=== PATIENT | female | born 1935 | race Caucasian/White ===

== ENCOUNTER → 2017-02-17 | Outpatient (CLI) | payer MEDICARE, BC ==
[~2017-02-17] MED LIST: ANTIVERT25 MG PO; ASPIR 8181 MG PO; BABY ASA; BENAZEPRIL; CALCIUM 500 +1 EAC2 PO; CALCIUM500 MG; CARDIZEM CD120 M2 PO; CARDIZEM CD120 MG; CARDIZEM120 MG PO; ESCITALOPRAM10 MG; FERROUS SULFATE; HYCODAN/HYDROMET5 ML PO; HYDROCHLOROTHIAZIDE; KLOR-CON 88 ME1 PO; KLOR-CON 88 MEQ PO; LEVAQUIN750 MG PO; LEVOFLOXACIN500 MG PO; LEXAPRO10 MG PO; LOTENSIN HCT 51 TAB PO; OMEPRAZOLE20 M2 PO; PLAVIX75 M1 PO; POTASSIUM; PREDNISONE10 MG PO; PRILOSEC20 MG; TESSALON PERLE100 MG PO; ZOCOR40 MG PO; ZOFRAN4 MG PO
== END | disposition home or self-care (01) ==
LOC: RAD 14:38
DX: J44.9 Chronic obstructive pulmonary disease, unspecified (principal); R05 Cough; R06.02 Shortness of breath; Z87.891 Personal history of nicotine dependence

== ENCOUNTER 2017-12-15 14:29 | Emergency (ER) | payer MEDICARE, BC ==
[~2017-12-15] VITALS: Ht 175.2 cm; Wt 62.6 kg
--- NOTE | ~2017-12-15 | EKG ---
[place], [place] ELECTROCARDIOGRAM REPORT NAME: JELLY BOWEN UNIT #: [id number] ROOM: DOCTOR: GERMANIA JACOBS MD BIRTHDATE: [birth year] DOS: 12/15/2017 TIME: 1501 hours. Normal sinus rhythm at 57 beats per minute. Low voltage in limb leads. Nonspecific T-wave changes in chest leads. An abnormal ECG. No previous tracing is available for comparison. GERMANIA JACOBS MD CM:EKGRPT:ELECTROCARDIOGRAM REPORT [id number] GERMANIA JACOBS MD
[2017-12-15 15:11] LABS: HEMATOCRIT 38.1 % (37.0-47.0); HEMOGLOBIN 12.4 g/dl (12.0-16.0); MEAN CELL VOLUME 87.4 fl (81.0-99.0); MEAN CORPUSCULAR HGB 28.4 pg (27.0-31.0); MEAN CORPUSCULAR HGB CONC 32.5 g/dl (33.0-37.0); MEAN PLATELET VOLUME 10.7 fl (9.6-12.3); PLATELET COUNT AUTOMATED 227 10*3/uL (130-400); RED BLOOD COUNT 4.36 10*6/uL (4.10-5.10); RED CELL DISTRI WIDTH 13.5 % (0-14.5); WHITE BLOOD COUNT 4.8 10*3/uL (4.8-10.8)
[2017-12-15 15:30] LABS: PLATELET SUFFICIENCY NORMAL (NORMAL); TOTAL CELLS COUNTED 100 #CELLS
[2017-12-15 15:31] LABS: BURR CELLS FEW; OVALOCYTES FEW
[2017-12-15 15:38] LABS: ALBUMIN 3.4 gm/dl (3.1-4.5); CREATININE 1.1 mg/dL (0.55-1.02); FREE T4 1.47 ng/dl (0.76-1.46); POTASSIUM 3.6 mmol/L (3.5-5.1)
[2017-12-15 15:39] LABS: TROPONIN I 0.031 ng/ml (<0.045)
[2017-12-15 15:45] LABS: THYROID STIM HORMONE (HS) 2.79 uIU/ml (0.358-4.75)
[2017-12-15] MEDS ORDERED: MELOXICAM7.5 MG PO (16:09)
[2017-12-15] MEDS ORDERED: CLARITIN10 MG PO (16:10)
[2017-12-15] MEDS ORDERED: VITAMIN D-32000 UNI1 PO (16:10)
[2017-12-15] MEDS ORDERED: WOMEN'S DAILY1 EAC1 PO (16:11)
[2017-12-15 16:15] LABS: BILIRUBIN NEGATIVE (NEGATIVE); BLOOD TRACE-INTACT (NEGATIVE); CLARITY SL CLOUDY (CLEAR); COLOR YELLOW (YELLOW); GLUCOSE NEGATIVE (NEGATIVE); KETONE NEGATIVE (NEGATIVE); NITRITE NEGATIVE (NEGATIVE); UROBILINOGEN 0.2 E.U./dl (0.2-1.0)
[2017-12-15 16:32] LABS: LEUKO ESTERASE 3+ (NEGATIVE)
[2017-12-15 16:33] LABS: BACTERIA 2+; EPITHELIAL CELLS TNTC; WBC TNTC wbc/hpf (0-5)
[2017-12-15] MEDS ORDERED: TAMIFLU 75MG CA75 MG PO (17:21)
[2017-12-15] MEDS ORDERED: LEVAQUIN250 M1 PO (17:21)
== END 2017-12-15 17:48 | disposition home or self-care (01) ==
LOC: ED 14:29
PROVIDERS: Family Medicine
DX: J40 Bronchitis, not specified as acute or chronic (principal); J10.1 Influenza due to other identified influenza virus with other respiratory manifestations; N39.0 Urinary tract infection, site not specified; F41.9 Anxiety disorder, unspecified; J44.1 Chronic obstructive pulmonary disease with (acute) exacerbation; I10 Essential (primary) hypertension; E78.5 Hyperlipidemia, unspecified; Z90.49 Acquired absence of other specified parts of digestive tract; Z90.710 Acquired absence of both cervix and uterus; Z79.82 Long term (current) use of aspirin; Z88.0 Allergy status to penicillin; Z88.2 Allergy status to sulfonamides; Z88.8 Allergy status to other drugs, medicaments and biological substances

== ENCOUNTER 2017-12-17 12:00 | Inpatient (IN) | payer MEDICARE, BC ==
[~2017-12-17] VITALS: Ht 175.2 cm; Wt 56.0 kg
[~2017-12-17 12:00] MED LIST changes: +CLARITIN10 MG PO; +LEVAQUIN250 M1 PO; +MELOXICAM7.5 MG PO; +TAMIFLU 75MG CA75 MG PO; +VITAMIN D-32000 UNI1 PO; +WOMEN'S DAILY1 EAC1 PO
[2017-12-17 12:05] VITALS: BP 139/63
[2017-12-17 13:00] LABS: HEMATOCRIT 36.2 % (37.0-47.0); HEMOGLOBIN 11.9 g/dl (12.0-16.0); MEAN CELL VOLUME 86.8 fl (81.0-99.0); MEAN CORPUSCULAR HGB 28.5 pg (27.0-31.0); MEAN CORPUSCULAR HGB CONC 32.9 g/dl (33.0-37.0); MEAN PLATELET VOLUME 10.8 fl (9.6-12.3); PLATELET COUNT AUTOMATED 240 10*3/uL (130-400); RED BLOOD COUNT 4.17 10*6/uL (4.10-5.10); RED CELL DISTRI WIDTH 13.5 % (0-14.5); WHITE BLOOD COUNT 5.9 10*3/uL (4.8-10.8)
[2017-12-17 13:16] LABS: ALBUMIN 3.4 gm/dl (3.1-4.5); ALKALINE PHOSPHATASE 98 U/L (45-117); BUN 17 mg/dl (7-24); CHLORIDE 102 mmol/L (98-107); CREATININE 1.06 mg/dL (0.55-1.02); POTASSIUM 3.9 mmol/L (3.5-5.1); SGOT/AST 28 IU/L (3-35); SGPT/ALT 20 U/L (12-78); SODIUM 137 mmol/L (136-145); TOTAL PROTEIN 7.3 gm/dL (6.4-8.2); TROPONIN I 0.026 ng/ml (<0.045)
[2017-12-17 13:27] LABS: PLATELET SUFFICIENCY NORMAL (NORMAL); TOTAL CELLS COUNTED 100 #CELLS
[2017-12-17 13:45] VITALS: BP 112/53
[2017-12-17 15:24] VITALS: BP 107/52
[2017-12-17 15:58] LABS: BILIRUBIN NEGATIVE (NEGATIVE); BLOOD NEGATIVE (NEGATIVE); CLARITY CLEAR (CLEAR); COLOR YELLOW (YELLOW); GLUCOSE NEGATIVE (NEGATIVE); KETONE TRACE (NEGATIVE); LEUKO ESTERASE NEGATIVE (NEGATIVE); NITRITE NEGATIVE (NEGATIVE); PH 5.5 (5.0-9.0); SPECIFIC GRAVITY 1.025 (1.005-1.030); UROBILINOGEN 0.2 E.U./dl (0.2-1.0)
[2017-12-17] MEDS ORDERED: PROAIR HFA8.5 GM INH (16:10)
[2017-12-17] MEDS ORDERED: Synthroid,Levo50 MCG PO (16:12)
[2017-12-17 16:13] LABS: MUCOUS 1+
[2017-12-17 16:14] LABS: BACTERIA TRACE
[2017-12-17 16:15] VITALS: BP 111/47
[2017-12-17 20:00] VITALS: BP 113/47
[2017-12-18] VITALS: BP 104/48
[2017-12-18 06:54] LABS: BASO % 0.3 % (0.0-1.0); EOS % 0.8 % (1.0-4.0); HEMATOCRIT 32.1 % (37.0-47.0); HEMOGLOBIN 10.4 g/dl (12.0-16.0); LYMPH # 1.4 10*3/uL (1.3-4.4); LYMPH % 39.2 % (27.0-41.0); MEAN CELL VOLUME 89.4 fl (81.0-99.0); MEAN CORPUSCULAR HGB CONC 32.4 g/dl (33.0-37.0); MEAN PLATELET VOLUME 10.6 fl (9.6-12.3); MONO # 0.3 10*3/uL (0.1-1.0); MONO % 7.4 % (3.0-9.0); NEUT # 1.9 10*3/uL (2.3-7.9); PLATELET COUNT AUTOMATED 183 10*3/uL (130-400); RED BLOOD COUNT 3.59 10*6/uL (4.10-5.10); RED CELL DISTRI WIDTH 13.5 % (0-14.5); WHITE BLOOD COUNT 3.7 10*3/uL (4.8-10.8)
[2017-12-18 07:12] LABS: CREATININE 1.07 mg/dL (0.55-1.02); POTASSIUM 3.9 mmol/L (3.5-5.1)
[2017-12-18 08:00] VITALS: BP 106/64
[2017-12-18 08:50] LABS: VITAMIN D, 25-HYDROXY 44.4 ng/mL (30-100)
[2017-12-18 12:00] VITALS: BP 133/61
[2017-12-18 16:00] VITALS: BP 115/59
[2017-12-18 20:00] VITALS: BP 126/63
[2017-12-19] VITALS: BP 116/67
[2017-12-19 06:48] LABS: BASO % 0.3 % (0.0-1.0); EOS # 0.1 10*3/uL (0.0-0.4); EOS % 1.5 % (1.0-4.0); HEMATOCRIT 30.6 % (37.0-47.0); HEMOGLOBIN 9.7 g/dl (12.0-16.0); LYMPH # 1.4 10*3/uL (1.3-4.4); LYMPH % 39.2 % (27.0-41.0); MEAN CELL VOLUME 89.2 fl (81.0-99.0); MEAN CORPUSCULAR HGB 28.3 pg (27.0-31.0); MEAN CORPUSCULAR HGB CONC 31.7 g/dl (33.0-37.0); MEAN PLATELET VOLUME 11.1 fl (9.6-12.3); MONO # 0.3 10*3/uL (0.1-1.0); MONO % 8.4 % (3.0-9.0); NEUT # 1.7 10*3/uL (2.3-7.9); PLATELET COUNT AUTOMATED 169 10*3/uL (130-400); RED BLOOD COUNT 3.43 10*6/uL (4.10-5.10); RED CELL DISTRI WIDTH 13.7 % (0-14.5); WHITE BLOOD COUNT 3.4 10*3/uL (4.8-10.8)
[2017-12-19 07:21] LABS: ALBUMIN 2.8 gm/dl (3.1-4.5); ALKALINE PHOSPHATASE 76 U/L (45-117); BUN 14 mg/dl (7-24); CHLORIDE 106 mmol/L (98-107); CREATININE 0.91 mg/dL (0.55-1.02); POTASSIUM 3.4 mmol/L (3.5-5.1); SGOT/AST 18 IU/L (3-35); SGPT/ALT 16 U/L (12-78); SODIUM 140 mmol/L (136-145); TOTAL PROTEIN 6.1 gm/dL (6.4-8.2)
[2017-12-19 08:10] VITALS: BP 135/52
[2017-12-19 12:35] VITALS: BP 117/60
[2017-12-19 16:00] VITALS: BP 105/40
[2017-12-19 20:00] VITALS: BP 102/48
[2017-12-20] VITALS: BP 116/84
[2017-12-20 06:51] LABS: BASO % 0.2 % (0.0-1.0); EOS # 0.1 10*3/uL (0.0-0.4); EOS % 2.1 % (1.0-4.0); HEMATOCRIT 29.8 % (37.0-47.0); HEMOGLOBIN 9.7 g/dl (12.0-16.0); LYMPH # 1.4 10*3/uL (1.3-4.4); LYMPH % 33.6 % (27.0-41.0); MEAN CELL VOLUME 89.5 fl (81.0-99.0); MEAN CORPUSCULAR HGB 29.1 pg (27.0-31.0); MEAN CORPUSCULAR HGB CONC 32.6 g/dl (33.0-37.0); MEAN PLATELET VOLUME 10.8 fl (9.6-12.3); MONO # 0.4 10*3/uL (0.1-1.0); MONO % 8.6 % (3.0-9.0); NEUT # 2.4 10*3/uL (2.3-7.9); NEUT % 55.3 % (47.0-73.0); PLATELET COUNT AUTOMATED 189 10*3/uL (130-400); RED BLOOD COUNT 3.33 10*6/uL (4.10-5.10); RED CELL DISTRI WIDTH 13.7 % (0-14.5); WHITE BLOOD COUNT 4.3 10*3/uL (4.8-10.8)
[2017-12-20 07:30] LABS: CHLORIDE 106 mmol/L (98-107); POTASSIUM 3.5 mmol/L (3.5-5.1); SODIUM 140 mmol/L (136-145)
[2017-12-20 07:40] LABS: ALBUMIN 2.8 gm/dl (3.1-4.5); ALKALINE PHOSPHATASE 79 U/L (45-117); BUN 14 mg/dl (7-24); SGOT/AST 18 IU/L (3-35); SGPT/ALT 16 U/L (12-78); TOTAL PROTEIN 6.2 gm/dL (6.4-8.2)
[2017-12-20 08:00] VITALS: BP 136/60
[2017-12-20 12:00] VITALS: BP 124/60
[2017-12-20 16:00] VITALS: BP 135/54
[2017-12-20 20:00] VITALS: BP 103/65
[2017-12-21] VITALS: BP 115/60
[2017-12-21 07:13] LABS: BASO % 0.4 % (0.0-1.0); EOS # 0.2 10*3/uL (0.0-0.4); EOS % 3.8 % (1.0-4.0); HEMATOCRIT 32.2 % (37.0-47.0); HEMOGLOBIN 10.1 g/dl (12.0-16.0); LYMPH # 1.4 10*3/uL (1.3-4.4); MEAN CELL VOLUME 89.9 fl (81.0-99.0); MEAN CORPUSCULAR HGB 28.2 pg (27.0-31.0); MEAN CORPUSCULAR HGB CONC 31.4 g/dl (33.0-37.0); MEAN PLATELET VOLUME 11.1 fl (9.6-12.3); MONO # 0.4 10*3/uL (0.1-1.0); MONO % 8.6 % (3.0-9.0); NEUT # 2.8 10*3/uL (2.3-7.9); NEUT % 57.8 % (47.0-73.0); PLATELET COUNT AUTOMATED 237 10*3/uL (130-400); RED BLOOD COUNT 3.58 10*6/uL (4.10-5.10); RED CELL DISTRI WIDTH 14.1 % (0-14.5); WHITE BLOOD COUNT 4.8 10*3/uL (4.8-10.8)
[2017-12-21 07:23] LABS: ALBUMIN 2.7 gm/dl (3.1-4.5); ALKALINE PHOSPHATASE 78 U/L (45-117); BUN 13 mg/dl (7-24); CHLORIDE 108 mmol/L (98-107); CREATININE 0.99 mg/dL (0.55-1.02); POTASSIUM 4.2 mmol/L (3.5-5.1); SGOT/AST 15 IU/L (3-35); SGPT/ALT 15 U/L (12-78); SODIUM 143 mmol/L (136-145); TOTAL PROTEIN 6.1 gm/dL (6.4-8.2)
[2017-12-21 08:00] VITALS: BP 144/56
[2017-12-21 12:00] VITALS: BP 122/42
[2017-12-21] MEDS ORDERED: PHENERGAN25 M3 PO (14:08)
== END 2017-12-21 15:39 | disposition home health service (06) | DRG 193 ==
LOC: ED 12:00 → EDHOLD 14:48 → 5E 14:48
PROVIDERS: Emergency Medicine; Family Medicine Adult Medicine; Internal Medicine Hospice and Palliative Medicine; Student in an Organized Health Care Education/Training Program
DX: J10.1 Influenza due to other identified influenza virus with other respiratory manifestations (principal); N17.0 Acute kidney failure with tubular necrosis; N30.00 Acute cystitis without hematuria; E86.0 Dehydration; D64.9 Anemia, unspecified; M15.9 Polyosteoarthritis, unspecified; R26.2 Difficulty in walking, not elsewhere classified; Z66 Do not resuscitate; Z51.5 Encounter for palliative care; E03.9 Hypothyroidism, unspecified; K21.9 Gastro-esophageal reflux disease without esophagitis; F32.9 Major depressive disorder, single episode, unspecified; J30.2 Other seasonal allergic rhinitis; E55.9 Vitamin D deficiency, unspecified; J44.9 Chronic obstructive pulmonary disease, unspecified; I73.9 Peripheral vascular disease, unspecified; Z90.49 Acquired absence of other specified parts of digestive tract; Z90.710 Acquired absence of both cervix and uterus; Z87.891 Personal history of nicotine dependence; Z82.49 Family history of ischemic heart disease and other diseases of the circulatory system; Z88.1 Allergy status to other antibiotic agents; Z88.0 Allergy status to penicillin; Z88.2 Allergy status to sulfonamides; Z88.8 Allergy status to other drugs, medicaments and biological substances; Z79.82 Long term (current) use of aspirin; Z79.899 Other long term (current) drug therapy

== ENCOUNTER 2018-09-15 17:49 | Inpatient (IN) | payer MEDICARE, BC ==
[~2018-09-15] VITALS: Ht 175.3 cm; Wt 56.5 kg
--- NOTE | ~2018-09-15 | EKG ---
[place], [place] ELECTROCARDIOGRAM REPORT NAME: JELLY BOWEN UNIT #: [id number] ROOM: 404 DOCTOR: RAGHAVENDRA DRAFT REPORT BIRTHDATE: [birth year] [facility] Test Date: 2018-09-15 Test Time: 18:14:19 Pat Name: JELLY BOWEN Department: ER Room: 404 Gender: F Pizzamaker: Jolly Domínguez : 1935 Requested By: KAREN CARABALLO Order Number: [id number] Reading MD: Micky Johnson MD Measurements Intervals [place] Rate: 78 P: 68 MI: 162 QRS: -11 QRSD: 94 T: 56 QT: 390 QTc: 445 Interpretive Statements Sinus rhythm Borderline low voltage, extremity leads Electronically Signed On 09-16-2018 3:22:56 PST by Micky Johnson MD CM:EKGRPT:ELECTROCARDIOGRAM REPORT [id number] KAREN CARABALLO DO EPIPHANY DRAFT REPORT KAREN CARABALLO DO
[2018-09-15 17:49] VITALS: BP 158/127
[~2018-09-15 17:49] MED LIST changes: +PHENERGAN25 M3 PO; +PROAIR HFA8.5 GM INH; +Synthroid,Levo50 MCG PO
[2018-09-15] MEDS ORDERED: OMEPRAZOLE MAGN20 MG PO (18:12)
[2018-09-15] MEDS ORDERED: BENAZEPRIL-HCT1 EACH PO (18:14)
[2018-09-15] MEDS ORDERED: ASPIRIN81 M1 PO (18:15)
[2018-09-15 19:31] LABS: BASO % 0.2 % (0.0-1.0); EOS # 0.1 10*3/uL (0.0-0.4); EOS % 1.3 % (1.0-4.0); HEMATOCRIT 32.1 % (37.0-47.0); HEMOGLOBIN 10.5 g/dl (12.0-16.0); LYMPH % 8.9 % (27.0-41.0); MEAN CELL VOLUME 89.2 fl (81.0-99.0); MEAN CORPUSCULAR HGB 29.2 pg (27.0-31.0); MEAN CORPUSCULAR HGB CONC 32.7 g/dl (33.0-37.0); MEAN PLATELET VOLUME 10.4 fl (9.6-12.3); MONO # 0.6 10*3/uL (0.1-1.0); MONO % 5.4 % (3.0-9.0); NEUT # 9.1 10*3/uL (2.3-7.9); NEUT % 83.7 % (47.0-73.0); PLATELET COUNT AUTOMATED 281 10*3/uL (130-400); RED CELL DISTRI WIDTH 14.1 % (0-14.5); WHITE BLOOD COUNT 10.9 10*3/uL (4.8-10.8)
[2018-09-15 19:37] LABS: ACT PARTIAL THROMBO TIME 25.9 SECONDS (20.8-31.5)
[2018-09-15 19:45] LABS: ALBUMIN 3.1 gm/dl (3.1-4.5); ALKALINE PHOSPHATASE 107 U/L (45-117); BUN 23 mg/dl (7-24); CHLORIDE 105 mmol/L (98-107); CREATININE 0.89 mg/dL (0.55-1.02); POTASSIUM 3.9 mmol/L (3.5-5.1); SGOT/AST 16 IU/L (3-35); SGPT/ALT 14 U/L (12-78); SODIUM 138 mmol/L (136-145); URIC ACID 3.7 mg/dL (2.6-6.0)
[2018-09-15 19:46] LABS: TROPONIN I < 0.015 ng/ml (<0.045)
[2018-09-15 20:00] VITALS: BP 132/62
[2018-09-15 20:18] LABS: BILIRUBIN NEGATIVE (NEGATIVE); BLOOD NEGATIVE (NEGATIVE); CLARITY CLEAR (CLEAR); COLOR YELLOW (YELLOW); GLUCOSE NEGATIVE (NEGATIVE); KETONE NEGATIVE (NEGATIVE); LEUKO ESTERASE 2+ (NEGATIVE); NITRITE NEGATIVE (NEGATIVE); PH 5.5 (5.0-9.0); SPECIFIC GRAVITY 1.025 (1.005-1.030); UROBILINOGEN 0.2 E.U./dl (0.2-1.0)
[2018-09-15 20:56] LABS: BACTERIA 2+; MUCOUS TRACE; WBC 31-40 wbc/hpf (0-5)
[2018-09-15 22:00] VITALS: BP 132/62
[2018-09-16] VITALS: BP 128/44
[2018-09-16 06:37] LABS: BASO % 0.1 % (0.0-1.0); EOS # 0.1 10*3/uL (0.0-0.4); EOS % 0.9 % (1.0-4.0); HEMATOCRIT 30.1 % (37.0-47.0); HEMOGLOBIN 9.6 g/dl (12.0-16.0); LYMPH # 1.5 10*3/uL (1.3-4.4); LYMPH % 15.5 % (27.0-41.0); MEAN CELL VOLUME 89.9 fl (81.0-99.0); MEAN CORPUSCULAR HGB 28.7 pg (27.0-31.0); MEAN CORPUSCULAR HGB CONC 31.9 g/dl (33.0-37.0); MEAN PLATELET VOLUME 10.4 fl (9.6-12.3); MONO # 0.6 10*3/uL (0.1-1.0); MONO % 5.9 % (3.0-9.0); NEUT # 7.4 10*3/uL (2.3-7.9); NEUT % 77.3 % (47.0-73.0); PLATELET COUNT AUTOMATED 280 10*3/uL (130-400); RED BLOOD COUNT 3.35 10*6/uL (4.10-5.10); RED CELL DISTRI WIDTH 14.2 % (0-14.5); WHITE BLOOD COUNT 9.6 10*3/uL (4.8-10.8)
[2018-09-16 07:10] LABS: ALBUMIN 2.7 gm/dl (3.1-4.5); BUN 20 mg/dl (7-24); CHLORIDE 105 mmol/L (98-107); PHOSPHOROUS 2.4 mg/dL (2.5-4.9); POTASSIUM 3.9 mmol/L (3.5-5.1); SGOT/AST 14 IU/L (3-35); SGPT/ALT 13 U/L (12-78); SODIUM 137 mmol/L (136-145); TOTAL PROTEIN 6.1 gm/dL (6.4-8.2)
[2018-09-16 07:12] LABS: ALKALINE PHOSPHATASE 95 U/L (45-117); CHOLESTEROL 116 mg/dL (<200); HDL CHOLESTEROL 42 mg/dl (40-60); LDL CHOLESTEROL 60 mg/dL (9-159); TRIGLYCERIDES 70 mg/dl (<150); VLDL CHOLESTEROL 14 mg/dL (6-40)
[2018-09-16 08:02] VITALS: BP 116/60
[2018-09-16 12:21] VITALS: BP 112/47
[2018-09-16 16:00] VITALS: BP 115/50
[2018-09-16 20:00] VITALS: BP 104/56
[2018-09-17] VITALS: BP 148/62
[2018-09-17 06:44] LABS: BASO % 0.1 % (0.0-1.0); EOS % 0.4 % (1.0-4.0); HEMOGLOBIN 9.3 g/dl (12.0-16.0); LYMPH # 1.4 10*3/uL (1.3-4.4); LYMPH % 15.7 % (27.0-41.0); MEAN CELL VOLUME 90.9 fl (81.0-99.0); MEAN CORPUSCULAR HGB 28.2 pg (27.0-31.0); MEAN PLATELET VOLUME 10.8 fl (9.6-12.3); MONO # 0.5 10*3/uL (0.1-1.0); NEUT # 7.1 10*3/uL (2.3-7.9); NEUT % 78.4 % (47.0-73.0); PLATELET COUNT AUTOMATED 272 10*3/uL (130-400); RED CELL DISTRI WIDTH 13.9 % (0-14.5); WHITE BLOOD COUNT 9.1 10*3/uL (4.8-10.8)
[2018-09-17 07:03] LABS: ALBUMIN 2.8 gm/dl (3.1-4.5); ALKALINE PHOSPHATASE 98 U/L (45-117); BUN 23 mg/dl (7-24); CHLORIDE 105 mmol/L (98-107); CREATININE 0.87 mg/dL (0.55-1.02); POTASSIUM 3.6 mmol/L (3.5-5.1); SGOT/AST 14 IU/L (3-35); SGPT/ALT 13 U/L (12-78); SODIUM 138 mmol/L (136-145); TOTAL PROTEIN 6.4 gm/dL (6.4-8.2)
[2018-09-17 08:00] VITALS: BP 103/83
[2018-09-17] MEDS ORDERED: PEPCID20 MG PO (09:17)
[2018-09-17] MEDS ORDERED: PREDNISONE20 M1 PO (09:17)
[2018-09-17] MEDS ORDERED: TYLENOL325 M2 PO (09:17)
== END 2018-09-17 13:15 | disposition home or self-care (01) | DRG 546 ==
LOC: ED 17:49 → EDHOLD 20:50 → 4E 20:50
PROVIDERS: Family Medicine; Internal Medicine
DX: M35.3 Polymyalgia rheumatica (principal); E44.1 Mild protein-calorie malnutrition; R65.10 Systemic inflammatory response syndrome (SIRS) of non-infectious origin without acute organ dysfunction; N30.01 Acute cystitis with hematuria; Z68.1 Body mass index [BMI] 19.9 or less, adult; I16.0 Hypertensive urgency; I10 Essential (primary) hypertension; Z73.89 Other problems related to life management difficulty; D64.9 Anemia, unspecified; J30.2 Other seasonal allergic rhinitis; F32.9 Major depressive disorder, single episode, unspecified; E55.9 Vitamin D deficiency, unspecified; M19.012 Primary osteoarthritis, left shoulder; E78.5 Hyperlipidemia, unspecified; I73.9 Peripheral vascular disease, unspecified; J44.9 Chronic obstructive pulmonary disease, unspecified; D72.810 Lymphocytopenia; K21.9 Gastro-esophageal reflux disease without esophagitis; E03.9 Hypothyroidism, unspecified; Z90.49 Acquired absence of other specified parts of digestive tract; Z90.710 Acquired absence of both cervix and uterus; Z98.49 Cataract extraction status, unspecified eye; Z87.891 Personal history of nicotine dependence; Z82.49 Family history of ischemic heart disease and other diseases of the circulatory system; Z88.0 Allergy status to penicillin; Z88.1 Allergy status to other antibiotic agents; Z88.2 Allergy status to sulfonamides; Z88.8 Allergy status to other drugs, medicaments and biological substances; Z79.82 Long term (current) use of aspirin; Z79.899 Other long term (current) drug therapy

== ENCOUNTER 2019-02-16 20:32 | Emergency (ER) | payer MEDICARE, BC ==
[~2019-02-16] VITALS: Ht 172.7 cm; Wt 68.0 kg
[~2019-02-16 20:32] MED LIST changes: +ASPIRIN81 M1 PO; +BENAZEPRIL-HCT1 EACH PO; +OMEPRAZOLE MAGN20 MG PO; +PEPCID20 MG PO; +PREDNISONE20 M1 PO; +TYLENOL325 M2 PO
[2019-02-16 22:24] LABS: BILIRUBIN NEGATIVE (NEGATIVE); BLOOD NEGATIVE (NEGATIVE); CLARITY SL CLOUDY (CLEAR); COLOR YELLOW (YELLOW); GLUCOSE NEGATIVE (NEGATIVE); KETONE TRACE (NEGATIVE); LEUKO ESTERASE 1+ (NEGATIVE); NITRITE NEGATIVE (NEGATIVE); PH 5.5 (5.0-9.0); SPECIFIC GRAVITY >= 1.030 (1.005-1.030); UROBILINOGEN 0.2 E.U./dl (0.2-1.0)
[2019-02-16 22:31] LABS: BACTERIA 2+; EPITHELIAL CELLS TNTC; MUCOUS 1+; RBC 0-2 rbc/hpf (0-2)
[2019-02-16] MEDS ORDERED: MACROBID100 M1 PO (23:17)
[2019-02-16] MEDS ORDERED: VOLTAREN100 GM T (23:17)
== END 2019-02-16 23:56 | disposition home or self-care (01) ==
LOC: ED 20:32
PROVIDERS: Emergency Medicine Emergency Medical Services
DX: N39.0 Urinary tract infection, site not specified (principal); M51.36 Other intervertebral disc degeneration, lumbar region; J44.9 Chronic obstructive pulmonary disease, unspecified; I10 Essential (primary) hypertension; K21.9 Gastro-esophageal reflux disease without esophagitis; E78.5 Hyperlipidemia, unspecified; E03.9 Hypothyroidism, unspecified; I73.9 Peripheral vascular disease, unspecified; Z88.0 Allergy status to penicillin; Z88.2 Allergy status to sulfonamides; Z88.1 Allergy status to other antibiotic agents; Z88.8 Allergy status to other drugs, medicaments and biological substances; Z79.899 Other long term (current) drug therapy; Z79.82 Long term (current) use of aspirin; Z90.710 Acquired absence of both cervix and uterus; Z90.49 Acquired absence of other specified parts of digestive tract; Z87.891 Personal history of nicotine dependence

== ENCOUNTER 2019-06-04 11:20 | Emergency (ER) | payer MEDICARE, BC ==
[~2019-06-04] VITALS: Ht 175.2 cm; Wt 57.6 kg
[~2019-06-04 11:20] MED LIST changes: +MACROBID100 M1 PO; +VOLTAREN100 GM T
[2019-06-04] MEDS ORDERED: TEMOVATE30 GM T (11:54)
== END 2019-06-04 11:57 | disposition home or self-care (01) ==
LOC: ED 11:20
DX: R21 Rash and other nonspecific skin eruption (principal); J44.9 Chronic obstructive pulmonary disease, unspecified; I10 Essential (primary) hypertension; K21.9 Gastro-esophageal reflux disease without esophagitis; E78.5 Hyperlipidemia, unspecified; E03.9 Hypothyroidism, unspecified; I73.9 Peripheral vascular disease, unspecified; M06.9 Rheumatoid arthritis, unspecified; Z88.0 Allergy status to penicillin; Z88.2 Allergy status to sulfonamides; Z88.1 Allergy status to other antibiotic agents; Z88.8 Allergy status to other drugs, medicaments and biological substances; Z79.2 Long term (current) use of antibiotics; Z79.82 Long term (current) use of aspirin; Z79.899 Other long term (current) drug therapy; Z87.891 Personal history of nicotine dependence; Z90.49 Acquired absence of other specified parts of digestive tract; Z90.710 Acquired absence of both cervix and uterus

== ENCOUNTER 2019-12-04 14:39 | Inpatient (IN) | payer MEDICARE, BC ==
[~2019-12-04] VITALS: Ht 172.7 cm; Wt 58.1 kg
[~2019-12-04 14:39] MED LIST changes: +TEMOVATE30 GM T
[2019-12-04 14:53] VITALS: BP 122/48
[2019-12-04 16:01] LABS: BASO % 0.3 % (0.0-1.0); EOS % 0.3 % (1.0-4.0); HEMATOCRIT 31.1 % (37.0-47.0); HEMOGLOBIN 9.5 g/dl (12.0-16.0); LYMPH # 0.8 10*3/uL (1.3-4.4); LYMPH % 8.1 % (27.0-41.0); MEAN CELL VOLUME 94.5 fl (81.0-99.0); MEAN CORPUSCULAR HGB 28.9 pg (27.0-31.0); MEAN CORPUSCULAR HGB CONC 30.5 g/dl (33.0-37.0); MEAN PLATELET VOLUME 10.9 fl (9.6-12.3); MONO # 0.7 10*3/uL (0.1-1.0); MONO % 6.9 % (3.0-9.0); NEUT # 8.1 10*3/uL (2.3-7.9); PLATELET COUNT AUTOMATED 294 10*3/uL (130-400); RED BLOOD COUNT 3.29 10*6/uL (4.10-5.10); RED CELL DISTRI WIDTH 15.9 % (0-14.5); WHITE BLOOD COUNT 9.7 10*3/uL (4.8-10.8)
[2019-12-04 16:10] LABS: ACT PARTIAL THROMBO TIME 23.4 SECONDS (20.0-32.1)
[2019-12-04 16:15] LABS: ALBUMIN 3.2 gm/dl (3.1-4.5); ALKALINE PHOSPHATASE 105 U/L (45-117); BUN 24 mg/dl (7-24); CHLORIDE 107 mmol/L (98-107); CREATININE 1.04 mg/dL (0.55-1.02); LIPASE 162 U/L (73-393); POTASSIUM 3.8 mmol/L (3.5-5.1); SGOT/AST 21 IU/L (3-35); SGPT/ALT 19 U/L (12-78); SODIUM 137 mmol/L (136-145); TOTAL PROTEIN 6.5 gm/dL (6.4-8.2)
--- NOTE | 2019-12-04 20:53 | NUR ---
EASTON FROM ER CALLED TO QUESTION PATIENT'S MONITORED STATUS DUE TO DNR-CC CODE STATUS. THIS RN CALLED TO CLARIFY WHETHER PT TO BE MONITORED OR MED SURG. PT TO BE MONITORED PER . EASTON & SHIFT DIRECTOR NOTIFIED.
[2019-12-04 21:07] VITALS: BP 129/57
--- NOTE | 2019-12-04 21:07 | NUR ---
A 84, admitted to 4E, under the services of SONNY Bob DO with a diagnosis of CHEST PAIN R/O IA. Chief complaint is L ARM, SHOULDER, & NECK PAIN. Patient arrived via stretcher from ER. Monitor applied. Initial assessment completed. Vital signs taken and recorded. SONNY BOB DO notified of admission to the unit. Orders received. See assessment for past medical history, medications and allergies. Patient and/or family oriented to unit. [facility] visitation policy reviewed. Clothing/patient valuable form completed. LEANNE AVILA
[2019-12-04] MEDS ORDERED: FEOSOL45 M1 PO (21:28)
[2019-12-04] MEDS ORDERED: CITALOPRAM20 MG PO (21:28)
[2019-12-04] MEDS ORDERED: NEXIUM20 M1 PO (21:28)
[2019-12-04] MEDS ORDERED: METOCLOPRAMIDE5 MG PO (21:29)
--- NOTE | 2019-12-04 21:30 | NUR ---
MED REC UPDATED PER PRESCRIPTION BOTTLES PROVIDED BY DAUGHTER. MEDICATIONS GIVEN BACK TO DAUGHTER AND SHE IS TO TAKE THEM HOME.
--- NOTE | 2019-12-04 22:36 | NUR ---
NOTIFIED OF NEEDING ORDERS. INSTRUCTED TO ORDER TELEMETRY ADMIT TO SERVICE LOCATION UNDER AND REGULAR DIET. ALSO INSTRUCTED TO MAKE SURE EKGs AND TROPS CYCLED X3 AND THEN HE WILL PUT IN REMAINING ORDERS AT LATER TIME.
[2019-12-04 22:42] LABS: BILIRUBIN NEGATIVE (NEGATIVE); CLARITY CLEAR (CLEAR); COLOR YELLOW (YELLOW); GLUCOSE NEGATIVE (NEGATIVE); KETONE NEGATIVE (NEGATIVE)
[2019-12-04 22:43] LABS: BLOOD NEGATIVE (NEGATIVE); LEUKO ESTERASE NEGATIVE (NEGATIVE); NITRITE NEGATIVE (NEGATIVE); UROBILINOGEN 0.2 E.U./dl (0.2-1.0)
[2019-12-04 22:44] LABS: BACTERIA TRACE; EPITHELIAL CELLS 15-20
[2019-12-05] VITALS: BP 109/43
--- NOTE | 2019-12-05 05:25 | NUR ---
'S ANSWERING SERVICE CALLED REGARDING CONSULT. CALL BACK NUMBER LEFT WITH FRAME REPAIRER.
--- NOTE | 2019-12-05 06:35 | NUR ---
THIS RN NOTIFIED OF EKG NOT DONE UNTIL THIS MORNING. AWARE THAT 3RD EKG TO BE DONE THIS AM. ALSO AWARE 3RD TROPONIN DRAWN THIS MORNING. DISCUSSED DNR-CC CODE STATUS, ORDER FOR DR.K CHAVEZ CONSULT, AND STRESS TEST ORDERED FOR TODAY. NO NEW ORDERS RECEIVED. INSTRUCTED TO MAKE SURE PT HAS 3 EKGs & 2 TROPONINS DRAWN.
[2019-12-05 07:28] VITALS: BP 118/64
--- NOTE | 2019-12-05 07:28 | NUR ---
ASSESSMENT COMPLETED AND DOCUMENTED. PT IS NPO D/T STRESS TEST. PT LAYING IN BED WATCHING TV WITH FAMILY MEMBER AT BEDSIDE. PT DENIES ANY SOB AND CHEST PAIN. PT HAD NO COMPLAINTS AT THIS TIME. DENIA SCHMIDT
--- NOTE | 2019-12-05 07:55 | NUR ---
Occupational Therapy: Nursing screen received. If decline in status/decreased independence with ADLs please send referral. THank you Gilda Hammonds OTR/L
[2019-12-05] MEDS ORDERED: PREDNISONE2.5 MG PO (08:53)
--- NOTE | 2019-12-05 09:00 | NUR ---
Cyber Operator in to talk to patient. Patient states lives at home with family. There are no steps in the home. Physician: [facility]ade [facility] [place] [facility] none at present Patient's level of ADLs: MINIMAL ASSIST Patient has working utilities: all working DME: bedside commode, walker, wheelchair, all belonging to Follow-up physician's appointment after d/c: will be made by hospitalist nurse director upon discharge Does patient want to access PORTAL?: no Discharge plan discussed with patient, she lives at home, is normally independent in adls and ambulation, has equipment that belonged to , she stated she will return home when medically stable and [facility], case management will send referral [facility] to see when medically stable for discharge. LAURIE QUIJANO
--- NOTE | 2019-12-05 09:59 | NUR ---
TO STRESS TEST VIA W/C WITH TRANSPORT AND STUDENT NURSE.
[2019-12-05] MEDS ORDERED: PROAIR HFA8.5 GM INH (10:12)
--- NOTE | 2019-12-05 10:40 | NUR ---
INFORMED SIGNED CONSENT OBTAINED FOR LEXISCAN STRESS TEST WITH DR MCGOWAN. RESTING EKG SINUS BRADYCARDIA HR 59 BP 136/78, INVERTED T WAVE AVL, V1, V2. PULSE OX 97% LUNGS CLEAR. PT COMPLETED ONE MINUTE OF A LEXISCAN PROTOCOL WITH PT RECEIVING LEXISCAN 0.4MG IV OVER [address]MI[address] OR [address] CHANGES NOTED. PT C/O SOB WITH INJECTION. LAST RECOVERY HR OF 79 BP 124/70. PT IN STABLE CONDITION, AWAITING NUCLEAR IMAGES.
[2019-12-05 12:00] VITALS: BP 118/68
--- NOTE | 2019-12-05 12:00 | NUR ---
ASSESSMENT COMPLETED AND DOCUMENTED. PT BACK FROM STRESS TEST, FAMILY AT BEDSIDE. NO COMPLAINTS AT THIS TIME. DENIA GAGE SPNRCC
--- NOTE | 2019-12-05 13:17 | NUR ---
PT WAITING ON LUNCH, DAUGHTER AT BEDSIDE. NO COMPLAINTS AT THIS TIME. REPORT GIVEN TO OSCAR BAR. DENIA GAGE SPMARY ANNECC
--- NOTE | 2019-12-05 15:41 | NUR ---
Discharge instructions reviewed with patient/family. Patient receptive and verbalizes understanding. Follow-up care arranged. Written instructions given to patient/family. RUDDY RAMIREZ
--- NOTE | 2019-12-06 15:13 | NUR ---
case management faxed patient's information to [facility] and informed them that patient was discharged yesterday
== END 2019-12-05 15:41 | disposition home health service (06) | DRG 313 ==
LOC: ED 14:39 → EDHOLD 20:09 → 4E 20:09
PROVIDERS: Nurse Practitioner Family; ADMIT Family Medicine
PROC: 4A02XM4 Measurement of Cardiac Total Activity, External Approach (ICD-10-PCS; principal; 2019-12-05)
PROC: 3E073KZ Introduction of Other Diagnostic Substance into Coronary Artery, Percutaneous Approach (ICD-10-PCS; principal; 2019-12-05)
DX: R07.89 Other chest pain (principal); E87.2 Acidosis; E44.1 Mild protein-calorie malnutrition; Z68.1 Body mass index [BMI] 19.9 or less, adult; R73.9 Hyperglycemia, unspecified; J44.9 Chronic obstructive pulmonary disease, unspecified; F32.9 Major depressive disorder, single episode, unspecified; K21.9 Gastro-esophageal reflux disease without esophagitis; E78.5 Hyperlipidemia, unspecified; E03.9 Hypothyroidism, unspecified; F41.1 Generalized anxiety disorder; I10 Essential (primary) hypertension; R41.3 Other amnesia; M35.3 Polymyalgia rheumatica; M15.0 Primary generalized (osteo)arthritis; I71.4 Abdominal aortic aneurysm, without rupture; I73.9 Peripheral vascular disease, unspecified; D64.9 Anemia, unspecified; Z90.49 Acquired absence of other specified parts of digestive tract; Z90.710 Acquired absence of both cervix and uterus; Z98.49 Cataract extraction status, unspecified eye; Z87.891 Personal history of nicotine dependence; Z82.49 Family history of ischemic heart disease and other diseases of the circulatory system; Z88.1 Allergy status to other antibiotic agents; Z88.0 Allergy status to penicillin; Z88.2 Allergy status to sulfonamides; Z88.8 Allergy status to other drugs, medicaments and biological substances; Z79.899 Other long term (current) drug therapy; Z79.82 Long term (current) use of aspirin

== ENCOUNTER 2019-12-16 12:15 | Emergency (ER) | payer MEDICARE, BC ==
[~2019-12-16] VITALS: Ht 172.7 cm; Wt 58.1 kg
[~2019-12-16 12:15] MED LIST changes: +CITALOPRAM20 MG PO; +FEOSOL45 M1 PO; +METOCLOPRAMIDE5 MG PO; +NEXIUM20 M1 PO; +PREDNISONE2.5 MG PO
[2019-12-16 12:26] VITALS: BP 121/55
== END 2019-12-16 23:00 | disposition home or self-care (01) ==
LOC: ED 12:15 → EDHOLD 21:30 → ED 21:30
DX: R26.89 Other abnormalities of gait and mobility (principal); R22.42 Localized swelling, mass and lump, left lower limb; M25.552 Pain in left hip; E78.00 Pure hypercholesterolemia, unspecified; I10 Essential (primary) hypertension; K21.9 Gastro-esophageal reflux disease without esophagitis; E78.5 Hyperlipidemia, unspecified; E03.9 Hypothyroidism, unspecified; I73.9 Peripheral vascular disease, unspecified; Z88.0 Allergy status to penicillin; Z88.2 Allergy status to sulfonamides; Z88.1 Allergy status to other antibiotic agents; Z88.8 Allergy status to other drugs, medicaments and biological substances; Z79.899 Other long term (current) drug therapy; Z79.82 Long term (current) use of aspirin; Z90.710 Acquired absence of both cervix and uterus; Z90.49 Acquired absence of other specified parts of digestive tract; Z87.891 Personal history of nicotine dependence

== ENCOUNTER → 2020-09-04 | Outpatient (CLI) | payer MEDICARE, BC | END | disposition home or self-care (01) | LOC: COVID19 15:28 | PROVIDERS: ATTEND Internal Medicine | DX: U07.1 COVID-19 (principal) ==

== ENCOUNTER → 2021-01-24 | Outpatient (CLI) | payer MEDICARE, BC | LOC: WOUNDCARE 09:16 | PROVIDERS: ATTEND Nurse Practitioner | DX: S81.812A Laceration without foreign body, left lower leg, initial encounter (principal); S81.811A Laceration without foreign body, right lower leg, initial encounter; I73.9 Peripheral vascular disease, unspecified; I87.2 Venous insufficiency (chronic) (peripheral); R60.0 Localized edema; I10 Essential (primary) hypertension; Z87.891 Personal history of nicotine dependence; Z90.710 Acquired absence of both cervix and uterus; Z88.0 Allergy status to penicillin; Z88.2 Allergy status to sulfonamides; X58.XXXA Exposure to other specified factors, initial encounter; Y93.89 Activity, other specified; Y92.89 Other specified places as the place of occurrence of the external cause; Y99.8 Other external cause status ==

== ENCOUNTER → 2021-01-30 | Outpatient (CLI) | payer MEDICARE, BC | LOC: WOUNDCARE 00:47 | PROVIDERS: ATTEND Nurse Practitioner | DX: S81.812D Laceration without foreign body, left lower leg, subsequent encounter (principal); S81.811D Laceration without foreign body, right lower leg, subsequent encounter; I73.9 Peripheral vascular disease, unspecified; I87.2 Venous insufficiency (chronic) (peripheral); R60.0 Localized edema; I10 Essential (primary) hypertension; Z87.891 Personal history of nicotine dependence; Z90.710 Acquired absence of both cervix and uterus; Z88.0 Allergy status to penicillin; Z88.2 Allergy status to sulfonamides; X58.XXXD Exposure to other specified factors, subsequent encounter ==

== ENCOUNTER → 2021-02-05 | Outpatient (CLI) | payer MEDICARE, BC | LOC: WOUNDCARE 02-04 00:28 | PROVIDERS: ATTEND Nurse Practitioner | DX: S81.812D Laceration without foreign body, left lower leg, subsequent encounter (principal); S81.811D Laceration without foreign body, right lower leg, subsequent encounter; I10 Essential (primary) hypertension; I73.9 Peripheral vascular disease, unspecified; I87.2 Venous insufficiency (chronic) (peripheral); R60.0 Localized edema; Z90.710 Acquired absence of both cervix and uterus; Z87.891 Personal history of nicotine dependence; X58.XXXD Exposure to other specified factors, subsequent encounter ==

== ENCOUNTER → 2021-02-11 | Outpatient (CLI) | payer MEDICARE, BC | LOC: WOUNDCARE 01:10 | PROVIDERS: ATTEND Nurse Practitioner | DX: S81.812D Laceration without foreign body, left lower leg, subsequent encounter (principal); S81.811D Laceration without foreign body, right lower leg, subsequent encounter; L97.812 Non-pressure chronic ulcer of other part of right lower leg with fat layer exposed; L97.822 Non-pressure chronic ulcer of other part of left lower leg with fat layer exposed; I73.9 Peripheral vascular disease, unspecified; I87.2 Venous insufficiency (chronic) (peripheral); R60.0 Localized edema; Z88.0 Allergy status to penicillin; Z88.2 Allergy status to sulfonamides ==

== ENCOUNTER → 2021-02-18 | Outpatient (CLI) | payer MEDICARE, BC | LOC: WOUNDCARE 01:21 | PROVIDERS: ATTEND Nurse Practitioner | DX: S81.812D Laceration without foreign body, left lower leg, subsequent encounter (principal); L97.812 Non-pressure chronic ulcer of other part of right lower leg with fat layer exposed; L97.822 Non-pressure chronic ulcer of other part of left lower leg with fat layer exposed; I73.9 Peripheral vascular disease, unspecified; I87.2 Venous insufficiency (chronic) (peripheral); R60.0 Localized edema; Z88.0 Allergy status to penicillin; Z88.2 Allergy status to sulfonamides; X58.XXXD Exposure to other specified factors, subsequent encounter ==

== ENCOUNTER → 2021-02-28 | Outpatient (CLI) | payer MEDICARE, BC | LOC: WOUNDCARE 02-25 01:57 | PROVIDERS: ATTEND Nurse Practitioner | DX: S81.812D Laceration without foreign body, left lower leg, subsequent encounter (principal); S81.811D Laceration without foreign body, right lower leg, subsequent encounter; S41.111D Laceration without foreign body of right upper arm, subsequent encounter; L97.812 Non-pressure chronic ulcer of other part of right lower leg with fat layer exposed; L97.822 Non-pressure chronic ulcer of other part of left lower leg with fat layer exposed; I10 Essential (primary) hypertension; I87.2 Venous insufficiency (chronic) (peripheral); R60.0 Localized edema; I73.9 Peripheral vascular disease, unspecified; Z88.0 Allergy status to penicillin; Z88.2 Allergy status to sulfonamides; X58.XXXD Exposure to other specified factors, subsequent encounter ==

== ENCOUNTER → 2021-03-08 | Outpatient (CLI) | payer MEDICARE, BC | LOC: WOUNDCARE 03-06 01:35 | PROVIDERS: ATTEND Nurse Practitioner | DX: S81.812D Laceration without foreign body, left lower leg, subsequent encounter (principal); S81.811D Laceration without foreign body, right lower leg, subsequent encounter; S41.111D Laceration without foreign body of right upper arm, subsequent encounter; L97.812 Non-pressure chronic ulcer of other part of right lower leg with fat layer exposed; L97.822 Non-pressure chronic ulcer of other part of left lower leg with fat layer exposed; I10 Essential (primary) hypertension; I87.2 Venous insufficiency (chronic) (peripheral); R60.0 Localized edema; I73.9 Peripheral vascular disease, unspecified; Z88.0 Allergy status to penicillin; Z88.2 Allergy status to sulfonamides; X58.XXXD Exposure to other specified factors, subsequent encounter ==

== ENCOUNTER → 2021-03-13 | Outpatient (CLI) | payer MEDICARE, BC | LOC: WOUNDCARE 13:56 | PROVIDERS: ATTEND Nurse Practitioner | DX: S81.812D Laceration without foreign body, left lower leg, subsequent encounter (principal); S81.811D Laceration without foreign body, right lower leg, subsequent encounter; S41.111D Laceration without foreign body of right upper arm, subsequent encounter; L97.812 Non-pressure chronic ulcer of other part of right lower leg with fat layer exposed; L97.822 Non-pressure chronic ulcer of other part of left lower leg with fat layer exposed; I10 Essential (primary) hypertension; I87.2 Venous insufficiency (chronic) (peripheral); R60.0 Localized edema; I73.9 Peripheral vascular disease, unspecified; Z88.0 Allergy status to penicillin; Z88.2 Allergy status to sulfonamides; X58.XXXD Exposure to other specified factors, subsequent encounter ==

== ENCOUNTER → 2021-04-15 | Outpatient (CLI) | payer MEDICARE, BC ==
[~2021-04-15] MED LIST changes: +ACETAMINOPHEN325 M2 PO; +HYDROXYZINE HCL25 MG PO; +LEVOFLOXACIN750 M2 PO; +LOPRESSOR25 MG PO; +MEMANTINE HCL10 MG PO; +MOBIC7.5 MG PO; +NAMENDA-5 PO; -PREDNISONE2.5 MG PO; +PREDNISONE5 MG PO; +PROTONIX20 MG PO; +RIVASTIGMINE1 EAC1 T; +ROZEREM8 MG PO; -VITAMIN D-32000 UNI1 PO; +VITAMIN D325 MC1 PO
== END | disposition home or self-care (01) ==
LOC: ORTHO 05:34
PROVIDERS: ATTEND Orthopaedic Surgery
DX: S72.142D Displaced intertrochanteric fracture of left femur, subsequent encounter for closed fracture with routine healing (principal); X58.XXXD Exposure to other specified factors, subsequent encounter

== ENCOUNTER → 2021-04-19 | Outpatient (CLI) | payer MEDICARE, BC | LOC: WOUNDCARE 02:36 | PROVIDERS: ATTEND Nurse Practitioner | DX: S41.112A Laceration without foreign body of left upper arm, initial encounter (principal); S81.012A Laceration without foreign body, left knee, initial encounter; I10 Essential (primary) hypertension; Z87.891 Personal history of nicotine dependence; Z90.49 Acquired absence of other specified parts of digestive tract; Z88.0 Allergy status to penicillin; Z88.2 Allergy status to sulfonamides; W19.XXXA Unspecified fall, initial encounter; Y93.89 Activity, other specified; Y92.89 Other specified places as the place of occurrence of the external cause; Y99.8 Other external cause status ==

== ENCOUNTER → 2021-05-03 | Outpatient (CLI) | payer MEDICARE, BC ==
[~2021-05-03] MED LIST changes: +MUCINEX1200 M1 PO
== END ==
LOC: WOUNDCARE 02:31
PROVIDERS: ATTEND Nurse Practitioner
DX: S61.214A Laceration without foreign body of right ring finger without damage to nail, initial encounter (principal); S61.218A Laceration without foreign body of other finger without damage to nail, initial encounter; I10 Essential (primary) hypertension; Z87.891 Personal history of nicotine dependence; W22.8XXA Striking against or struck by other objects, initial encounter; Y93.89 Activity, other specified; Y92.89 Other specified places as the place of occurrence of the external cause; Y99.8 Other external cause status

== ENCOUNTER 2021-05-26 14:39 | Emergency (ER) | payer MEDICARE, BC ==
[~2021-05-26 14:39] MED LIST changes: -MUCINEX1200 M1 PO
[2021-05-26 15:08] LABS: BASO # 0.1 10*3/uL (0.0-0.1); BASO % 0.5 % (0.0-1.0); EOS # 0.2 10*3/uL (0.0-0.4); EOS % 1.5 % (1.0-4.0); HEMATOCRIT 40.1 % (37.0-47.0); LYMPH % 29.4 % (27.0-41.0); MEAN CELL VOLUME 96.4 fl (81.0-99.0); MEAN CORPUSCULAR HGB 28.8 pg (27.0-31.0); MEAN CORPUSCULAR HGB CONC 29.9 g/dl (33.0-37.0); MEAN PLATELET VOLUME 10.6 fl (9.6-12.3); MONO # 0.7 10*3/uL (0.1-1.0); MONO % 7.1 % (3.0-9.0); NEUT # 6.1 10*3/uL (2.3-7.9); NEUT % 60.7 % (47.0-73.0); PLATELET COUNT AUTOMATED 324 10*3/uL (130-400); RED BLOOD COUNT 4.16 10*6/uL (4.10-5.10); RED CELL DISTRI WIDTH 14.7 % (0-14.5); WHITE BLOOD COUNT 10.1 10*3/uL (4.8-10.8)
[2021-05-26 15:24] LABS: ALBUMIN 3.3 gm/dl (3.1-4.5); ALKALINE PHOSPHATASE 119 U/L (45-117); BUN 22 mg/dl (7-24); CHLORIDE 108 mmol/L (98-107); CREATININE 0.82 mg/dL (0.55-1.02); POTASSIUM 3.6 mmol/L (3.5-5.1); SGOT/AST 21 IU/L (3-35); SGPT/ALT 18 U/L (12-78); SODIUM 142 mmol/L (136-145); TOTAL PROTEIN 7.2 gm/dL (6.4-8.2)
[2021-05-26] MEDS ORDERED: LEVOFLOXACIN500 MG PO (17:20)
[2021-05-26] MEDS ORDERED: MUCINEX1200 M1 PO (17:20)
== END 2021-05-26 18:28 ==
LOC: ED 14:39
PROVIDERS: Student in an Organized Health Care Education/Training Program
DX: J18.9 Pneumonia, unspecified organism (principal); J40 Bronchitis, not specified as acute or chronic; Z88.0 Allergy status to penicillin; Z88.2 Allergy status to sulfonamides; Z88.1 Allergy status to other antibiotic agents; Z88.8 Allergy status to other drugs, medicaments and biological substances; Z79.899 Other long term (current) drug therapy; Z79.2 Long term (current) use of antibiotics; Z79.82 Long term (current) use of aspirin; Z90.711 Acquired absence of uterus with remaining cervical stump; Z90.49 Acquired absence of other specified parts of digestive tract; Z87.891 Personal history of nicotine dependence

== ENCOUNTER → 2021-05-27 | Outpatient (CLI) | payer MEDICARE, BC ==
[~2021-05-27] MED LIST changes: +MUCINEX1200 M1 PO
== END | disposition home or self-care (01) ==
LOC: RAD
PROVIDERS: ATTEND Orthopaedic Surgery
DX: S72.142D Displaced intertrochanteric fracture of left femur, subsequent encounter for closed fracture with routine healing (principal); M25.852 Other specified joint disorders, left hip; X58.XXXD Exposure to other specified factors, subsequent encounter